=== PATIENT | female | born 1980 | race Caucasian/White ===

== ENCOUNTER 2016-06-16 10:11 | Emergency (ER) | payer MEDICAID ==
[~2016-06-16] VITALS: Ht 167.6 cm; Wt 64.4 kg
[2016-06-16 10:16] VITALS: BP 113/78
== END 2016-06-16 10:33 | disposition home or self-care (01) ==
LOC: ER 10:14
DX: H10.9 Unspecified conjunctivitis (principal)
CPT/HCPCS: 99283; A4606; Z7610